=== PATIENT | male | born 2000 | race Two or more races ===

== ENCOUNTER 2025-08-02 18:41 | Emergency (ER) | payer OTHER ==
[~2025-08-02] VITALS: Ht 177.8 cm; Wt 130.0 kg
--- NOTE | 2025-08-02 20:26 | DVH ---
EXAM: XY R FOREARM XRAY REASON FOR EXAM: Dog bite right arm TECHNIQUE: AP and lateral views of the right forearm are submitted for review. COMPARISON: None FINDINGS: There is no acute fracture or dislocation. There is subcutaneous air within the ventral medial soft tissues of the proximal forearm consistent with laceration. There is no radiopaque foreign body. IMPRESSION: No acute fracture or dislocation. No radiopaque foreign body.
--- NOTE | 2025-08-02 20:27 | DVH ---
EXAM: XY R HAND 3 VIEW XRAY REASON FOR EXAM: Dog bite right thumb TECHNIQUE: PA, lateral, and oblique views of the right hand are submitted for review. COMPARISON: None FINDINGS: There is no acute fracture or dislocation. There is no radiopaque foreign body. The soft tissues are within normal limits. IMPRESSION: No acute fracture or dislocation. No radiopaque foreign body.
--- NOTE | 2025-08-02 20:52 | ED.PDOC ---
History of Present Illness HPI Comments 25-year-old male who presents with multiple puncture, dog bite wounds to right forearm and thumb. Patient reports on being bitten by another domesticated dog, while walking his pet dog outside, this evening. He comments on the other animal attempting to start a fight with his pet and getting bitten when at tempting to intervene. [employer] and vaccination status of the animal is unknown. Dog is unknown to the patient. He reports on initial bleeding bed that has been controlled prior to ED arrival. Patient denies having any further injuries or acute symptoms at this time. REVIEW OF SYSTEMS: General: No fever, no chills, or fatigue HEENT: No sore throat, no earache, no congestion, no neck pain. Cardiac: No chest pain. No palpitations. Lungs: No shortness of breath, no cough. GI: No nausea, no vomiting, no diarrhea, no constipation, no abdominal pain : No dysuria, frequency, or urgency. No hematuria. Musculoskeletal: No joint pain , no joint swelling, no extremity edema. Skin: Multiple puncture, dog bite wounds to right forearm and thumb, no rash, no itching. Neuro: No headache, no dizziness, no weakness (And as stated in HPI) PHYSICAL EXAM: General: Awake, alert and oriented. No acute distress. Skin: 2x puncture wounds to dorsal and ventral side of mid forearm; small puncture wound to the lateral side of right thumb; normal range of motion of the fingers and arms; no purulent discharge or surrounding erythematous tissue to aforementioned wound sites; otherwise, skin is warm, dry and intact. Appropriate color for ethnicity. HEENT: The head is normocephalic and atraumatic. Conjunctivae are clear without exudates or hemorrhage. Sclera is non-icteric. Eyelids are normal in appearance without swelling or lesions. Oral mucosa is pink and moist Neck: The neck is supple with normal range of motion. No JVD. Cardiac: Heart rate and rhythm are normal. No murmurs, gallops, or rubs are auscultated. Respiratory: No signs of respiratory distress. Neurological: The patient is awake, alert and oriented Speech is clear. There is no facial asymmetry. Normal gait. Strength and range of motion in the upper extremity intact. Psychiatric: Appropriate mood and affect. Good judgement and insight. Chief Complaint: Animal Bite Time Seen by MD: 19:44 Reviewed Notes: Nurses Notes, Medications, Allergies Allergies: Coded Allergies: NO KNOWN ALLERGIES (Unverified , 08/02/25) Home Meds Active Scripts Amoxicillin & Pot Clavulanate (AUGMENTIN TABLET) 875 Mg Tb, 875 MG PO BID for 7 Days, #13 TAB Prov:GLADYS OSMAN MD 08/02/25 Information Source: Patient Mode of Arrival: Ambulatory Severity: Moderate Timing: Hours Duration: Since onset Prehospital treatment: Treatment (An inch gauze wrap to right thumb) Past Medical History PAST MEDICAL HISTORY: Denies Surgical History: Denies all surgeries Family History Family History: Unknown Social History Smoker: Non-Smoker Alcohol: Denies ETOH Use Drugs: Denies Drug Use Lives In: Home Was a procedure done? Was a procedure done?: No Differential Dx Considerations may include: Differentials include but not limited to puncture wound, retained foreign body, avulsions, neurovascular injuries, fractures, among others X-Ray, Labs, Meds, VS Vital Signs Date Time Temp Pulse Resp B/P (MAP) Pulse Ox O2 Delivery O2 Flow Rate FiO2 08/03/25 00:21 89 16 99 Room Air 08/02/25 22:17 98.4 89 16 142/87 (105) 99 98.4 08/02/25 18:44 98.2 88 18 154/103 98 98.2 Current Medications Medications (Trade) Dose Ordered Sig/Lucy Route Start Time Stop Time Status Last Admin Ketorolac Tromethamine (Toradol Injection) 30 mg ONCE ONCE IM 08/02/25 20:00 08/02/25 20:01 DC 08/02/25 23:44 Acetaminophen (Tylenol Tablet) 650 mg ONCE ONCE PO 08/02/25 20:00 08/02/25 20:01 DC 08/02/25 23:41 Diphtheria/ Tetanus/Acell Pertussis (Boostrix T-Dap) 0.5 ml ONCE ONCE IM 08/02/25 20:45 08/02/25 20:46 DC 08/02/25 23:52 Amoxicillin/ Clavulanate Potassium (Augmentin Tablet) 875 mg ONCE ONCE PO 08/02/25 20:45 08/02/25 20:46 DC 08/02/25 23:44 Rabies Vaccine (Rabavert) 2.5 units ONCE ONCE IM 08/02/25 21:45 12/24/25 21:46 DC 08/02/25 23:[address] [address] Ph: [phone] DIAGNOSTIC IMAGING Diagnostic Imaging Report : [id number] Signed PATIENT: ANT CHRISTENSEN ACCT: [id number] UNIT: [id number] : 2000 LOC: ER ROOM / BED: / AGE / SEX: 25 / M ADM STATUS: REG ER SERVICE 50 ORDERING PHYSICIAN: GLADYS OSMAN MD PROCEDURE(s): RHAN - R HAND 3 VIEW XRAY REASON: Dog bite right thumb ORDER NUMBER(s): [id number], ACCESSION NUMBER(s): [id number] EXAM: XY R HAND 3 VIEW XRAY REASON FOR EXAM: Dog bite right thumb TECHNIQUE: PA, lateral, and oblique views of the right hand are submitted for review. COMPARISON: None FINDINGS: There is no acute fracture or dislocation. There is no radiopaque foreign body. The soft tissues are within normal limits. IMPRESSION: No acute fracture or dislocation. No radiopaque foreign body. ATED BY: LALO MAHONEY MD DICTATED DATE/TIME: 08/02/252024 SIGNED BY: LALO MAHONEY MD SIGNED DATE/TIME: 08/02/252024 CC: [address] [address] Ph: [phone] DIAGNOSTIC IMAGING Diagnostic Imaging Report : [id number] Signed PATIENT: ANT CHRISTENSEN ACCT: [id number] UNIT: [id number] : 2000 LOC: ER ROOM / BED: / AGE / SEX: 25 / M ADM STATUS: REG ER SERVICE 50 ORDERING PHYSICIAN: GLADYS OSMAN MD PROCEDURE(s): RFOR - R FOREARM XRAY REASON: Dog bite right arm ORDER NUMBER(s): [id number], ACCESSION NUMBER(s): [id number] EXAM: XY R FOREARM XRAY REASON FOR EXAM: Dog bite right arm TECHNIQUE: AP and lateral views of the right forearm are submitted for review. COMPARISON: None FINDINGS: There is no acute fracture or dislocation. There is subcutaneous air within the ventral medial soft tissues of the proximal forearm consistent with laceration. There is no radiopaque foreign body. IMPRESSION: No acute fracture or dislocation. No radiopaque foreign body. ATED BY: LALO MAHONEY MD DICTATED DATE/TIME: 08/02/252022 SIGNED BY: LALO MAHONEY MD SIGNED DATE/TIME: 08/02/252022 CC: Time of 1ST Reevaluation: 20:50 Reevaluation 1ST: Unchanged Patient Education/Counseling: Need For Follow Up Family Education/Counseling: No Family Present SEPSIS Sepsis Screen Date sepsis recognized/suspect: Aug 02, 2025 Time Sepsis recognized/suspect: 1845 Recent Procedure: No On Antibiotic Therapy: No Respiratory Rate >20: No Heart Rate >90: No Temp<36 C (96.8 F) or >38.3 C: No SBP <90 or MAP <65 mmHG: No New Acute Mental Status Change: No Is the patient on CPAP, BIPAP,: No Physician Orders R Hand 3 View Xray (08/02/25 19:51) R Forearm Xray (08/02/25 19:51) Vital Signs Date Time Temp Pulse Resp B/P (MAP) Pulse Ox O2 Delivery O2 Flow Rate FiO2 08/03/25 00:21 89 16 99 Room Air 08/02/25 22:17 98.4 89 16 142/87 (105) 99 98.4 08/02/25 18:44 98.2 88 18 154/103 98 98.2 Medications Medications Dose Ordered Sig/Lucy Route Start Time Stop Time Status Last Admin Dose Admin Acetaminophen 650 mg ONCE ONCE PO 08/02/25 20:00 08/02/25 20:01 DC 08/02/25 23:41 Amoxicillin/ Clavulanate Potassium 875 mg ONCE ONCE PO 08/02/25 20:45 08/02/25 20:46 DC 08/02/25 23:44 Diphtheria/ Tetanus/Acell Pertussis 0.5 ml ONCE ONCE IM 08/02/25 20:45 08/02/25 20:46 DC 08/02/25 23:52 Ketorolac Tromethamine 30 mg ONCE ONCE IM 08/02/25 20:00 08/02/25 20:01 DC 08/02/25 23:44 Rabies Vaccine 2.5 units ONCE ONCE IM 08/02/25 21:45 08/02/25 21:46 DC 08/02/25 23:50 Departure 1 Departure Time of Disposition: 21:42 Impression: Primary Impression: Dog bite Additional Impression: Need for post exposure prophylaxis for rabies Disposition: HOME / SELF CARE / HOMELESS Condition: Stable Additional Instructions: ED DISCHARGE INSTRUCTIONS Instructions: Please read all instructions provided in this packet carefully. RETURN TO THE EMERGENCY DEPARTMENT IN 3, 7 AND 14 DAYS FOR THE NEXT 3 DOSES OF THE RABIES VACCINE. (08/05/25, 08/09/25, 08/16/25) Although you have been discharged from the Emergency Department, this does not mean that you have a "clean bill of health". No definitive diagnosis for your symptoms has been made today. It is possible that you are in the process of developing a serious illness. This is why you must return to the ED without fail if any new or worsening symptoms (especially if your symptoms include chest pain, trouble breathing, abdominal pain, fever, headache, confusion, trouble seeing, or trouble walking) It is also very important that you see a primary care provider (PCP) within the next 3-5 days to follow up for a wound check. If you are unable to get an appointment, return to the ED for re-evaluation. Preventing Rabies Infection: Care Instructions Rabies is a disease caused by a virus that can affect the brain and spinal cord (central nervous system). You can get rabies when you are exposed to an animal that has rabies. This can happen through a bite, scratch, or other contact. Your doctor can use two medicines to help your body fight the virus before it causes an infection. One is human rabies immunoglobulin (HRIG). It works by giving your body a type of protein called an antibody to stop the rabies virus. The other medicine is the rabies vaccine. It helps your body produce its own protection against the rabies virus. When you get these shots before serious symptoms appear, you should not get infected with rabies. Your doctor will give you a shot schedule. Make sure that you do not miss any doses. You need to get all the doses for the rabies vaccine to work. Follow-up care is a fontaine part of your treatment and safety. Be sure to make and go to all appointments, and contact your doctor if you are having problems. It's also a good idea to know your test results and keep a list of the medicines you take. How can you care for yourself at home? To prevent contact with rabies Make sure your dog, cat, or ferret gets the rabies vaccine. Avoid contact with animals that are likely to have rabies. And teach your children to avoid these animals too. These animals include bats, raccoons, skunks, foxes, and coyotes. Signs of rabies in animals may include excessive saliva or sometimes foaming at the mouth and paralysis. A pet with rabies also may behave differently than usual, such as acting shy when the pet usually is friendly. A wild animal with rabies may have no fear of humans. Make sure garbage and other items that attract animals are in closed containers that animals can't open. Secure open areas of your home, such as pet doors, chimneys, unscreened windows, or any place that wild or stray animals could enter. Never handle a or wounded animal without protecting yourself with thick gloves and other protective gear. To take care of an animal bite Wash any animal bite, scratch, or open sore right away. Use soap and water. Call your doctor to find out how to care for your wound. If you think you've been exposed to rabies, you'll need a series of shots called postexposure prophylaxis (PEP). When you get these shots before serious symptoms appear, you should not get infected with rabies. Other instructions When should you call for help? Watch closely for changes in your health, and be sure to contact your doctor if you have any problems. A puncture wound can happen anywhere on your body. These wounds tend to be narrower and deeper than cuts. A puncture wound is usually left open instead of being closed. This is because a puncture wound can be easily infected, and closing it can make infection even more likely. You will probably have a bandage over the wound. The doctor has checked you carefully, but problems can develop later. If you notice any problems or new symptoms, get medical treatment right away. Follow-up care is a fontaine part of your treatment and safety. Be sure to make and go to all appointments, and call your doctor if you are having problems. It's also a good idea to know your test results and keep a list of the medicines you take. How can you care for yourself at home? Keep the wound dry for the first 24 to 48 hours. After this, you can shower if your doctor okays it. Pat the wound dry. Don't soak the wound, such as in a bathtub. Your doctor will tell you when it's safe to get the wound wet. If your doctor told you how to care for your wound, follow your doctor's instructions. If you did not get instructions, follow this general advice: After the first 24 to 48 hours, wash the wound with clean water 2 times a day. Don't use hydrogen peroxide or alcohol, which can slow healing. You may cover the wound with a thin layer of petroleum jelly, such as Vaseline, and a nonstick bandage. Apply more petroleum jelly and replace the bandage as needed. Prop up the sore area on pillows anytime you sit or lie down during the next 3 days. Try to keep it above the level of your heart. This helps reduce swelling. Avoid any activity that could cause your wound to get worse. Be safe with medicines. Read and follow all instructions on the label. If the doctor gave you a prescription medicine for pain, take it as prescribed. If you are not taking a prescription pain medicine, ask your doctor if you can take an [id number] medicine. If your doctor prescribed antibiotics, take them as directed. Do not stop taking them just because you feel better. You need to take the full course of antibiotics. When should you call for help? Call your doctor now or seek immediate medical care if: You have new pain, or your pain gets worse. The wound starts to bleed, and blood soaks through the bandage. Oozing small amounts of blood is normal. The skin near the wound is cold or pale or changes color. You have tingling, weakness, or numbness near the wound. You have trouble moving the area near the wound. You have symptoms of infection, such as: Increased pain, swelling, warmth, or redness around the wound. Red streaks leading from the wound. Pus draining from the wound. A fever. Watch closely for changes in your health, and be sure to contact your doctor if: The cut reopens. You do not get better as expected. e-Prescriptions Amoxicillin & Pot Clavulanate (AUGMENTIN TABLET) 875 Mg Tb 875 MG PO BID for 7 Days, #13 TAB Prov: GLADYS OSMAN MD 08/02/25 Comments MDM: 25-year-old male with multiple puncture, dog bite wounds to right upper extremity. Dog is unknown to patient. Discussed with the patient risks and benefits of rabies immunoglobulin and vaccination, post exposure prophylaxis. Patient agrees to treatment. Rabies vaccine was administered at this facility however patient was referred to [facility] Emergency Department for full dose of rabies immunoglobulin. He is advised to return for subsequent doses of rabies vaccination. Advised wound care at home. I reviewed and agreed with the following test results read by other providers: Right hand and forearm x-ray Decision regarding hospitalization or escalation of hospital level of care: Risks and benefits of admission for further treatment of patient's condition was considered however due to patient's stable condition patient will be discharged to follow up closely or return to care for worsening of condition or inability to follow up. Critical Care Note Critical Care Time?: No Stability Stability form required: No Heart Score Heart Score: Heart Score Response (Comments) Value History N/A 0 EKG N/A 0 Age N/A 0 Risk Factors N/A 0 Troponin N/A 0 Total 0 I personally scribed for GLADYS OSMAN MD [email or web address]) on 08/02/25 at 20:52. Electronically submitted by Gildardo Tran ([email or web address]). I personally scribed for GLADYS OSMAN MD [email or web address]) on 08/02/25 at 22:05. Electronically submitted by Gildardo Tran ([email or web address]). GLADYS OSMAN MD Aug 02, 2025 20:52
[2025-08-02] MEDS: RABIES IMMUNE GLOBULIN 300unit/2ml (150unit/ml) INJ INFIL ONE (21:45)
[2025-08-02] MEDS ORDERED: AUG875T PO (21:45)
[2025-08-02 22:17] VITALS: BP 142/87; TEMP 98.4
[2025-08-02] MEDS: ACETAMINOPHEN 325 MG TAB PO ONE (23:41)
[2025-08-02] MEDS: KETOROLAC TROMETH 30 MG/ML 1ML VIAL IM ONE (23:44)
[2025-08-02] MEDS: RABIES VACCINE (PCEC)/PF 2.5 UNITS IM ONE (23:50)
[2025-08-02] MEDS: TETANUS-DIPTH-ACEL PERTUSSIS 0.5ML SYR Tdap IM ONE (23:52)
[2025-08-03 00:21] VITALS: PULSE 89; RESP 16; O2SAT 99
== END 2025-08-03 00:30 | disposition home or self-care (01) ==
LOC: ER 18:41
DX: S51.831A Puncture wound without foreign body of right forearm, initial encounter (principal); S41.151A Open bite of right upper arm, initial encounter; Z20.3 Contact with and (suspected) exposure to rabies; Z23 Encounter for immunization; W54.0XXA Bitten by dog, initial encounter; Y93.01 Activity, walking, marching and hiking; Y92.89 Other specified places as the place of occurrence of the external cause; Y99.9 Unspecified external cause status
CPT/HCPCS: 73090; 73130; 90471; 90472; 90675; 90715; 96372; 99284; J1885